=== PATIENT | female | born 1970 | race American Indian/Alaskan Native ===

== ENCOUNTER 2021-02-01 11:49 | Emergency (ER) | payer BC ==
[2021-02-01] MEDS ORDERED: LACTATED RINGERS 1,000 ML IV ONE (12:25)
--- NOTE | 2021-02-01 12:26 | Emergency Department Report ---
<ILA RAMIREZ - Last Filed: 02/01/21 15:35> ED General Adult HPI - General Chief complaint: Weakness Stated complaint: weakness PUI?: No Time Seen by Provider: 02/01/21 12:06 Source: family, EMS ( EMS documentation not available at time of chart dictation ), RN notes reviewed Mode of arrival: Stretcher Limitations: No Limitations - History of Present Illness Initial comments: The patient was evaluated in the emergency department for symptoms described in the history of present illness. He/she was evaluated in the context of the global COVID-19 pandemic, which necessitated consideration that the patient might be at risk for infection with the virus that causes COVID-19. Institutional protocols and algorithms that pertain to the evaluation of patients at risk for COVID-19 are in a state of rapid change based on information released by regulatory bodies including the CDC and federal and state organizations. These policies and algorithms were followed during the patient's care in the emergency department. Please note that these policies, procedures and recommendations changed on a rapid basis. This is a 50-year-old female. She is not known to myself previously. She moved here from [place] about a year ago. She does not have a local primary care doctor. She does not take long-term prescription medications. She has a history of multiple myeloma. She presents to the ER today with complaint of generalized weakness, malaise and fatigue. The patient endorses a dry cough. She has received her Covid vaccination. She denies loss of taste and smell. She denies physical pain. She took prescription medication for cough, which may have been , she does not know the specific name of the medication. She denies headache, neck pain, chest pain, abdominal pain, shortness of breath. She denies dysuria. She denies bladder or bowel retention or incontinence. She denies saddle anesthesia. She states that she feels generally weak. -: Gradual, hour(s) Consistency: constant Improves with: none Worsens with: movement - Related Data Home Medications Medication Instructions Recorded Confirmed Last Taken Adults Multivitamin Tablet 1 tab PO DAILY 02/01/21 02/01/21 Unknown Previous Rx's Medication Instructions Recorded Last Taken Type Potassium Chloride [K-Dur] 20 meq PO BID #30 tab 02/01/21 Unknown Rx Allergies Allergy/AdvReac Type Severity Reaction Status Date / Time No Known Allergies Allergy Unverified 02/01/21 12:52 ED Review of Systems Constitutional: malaise, weakness, other (Denies loss of taste and smell). denies: chills, fever Eyes: denies: eye discharge, vision change ENT: denies: throat pain Respiratory: denies: cough Cardiovascular: other (Lightheadedness). denies: chest pain Gastrointestinal: denies: abdominal pain, nausea, vomiting, hematemesis, melena, hematochezia Genitourinary: denies: dysuria Musculoskeletal: denies: back pain, arthralgia, myalgia Neurological: weakness. denies: headache Hematological/Lymphatic: denies: easy bleeding ED Past Medical Hx - Medications Home Medications: Home Medications Medication Instructions Recorded Confirmed Last Taken Type Adults Multivitamin Tablet 1 tab PO DAILY 02/01/21 02/01/21 Unknown History Potassium Chloride [K-Dur] 20 meq PO BID #30 tab 02/01/21 Unknown Rx ED Physical Exam - General Limitations: No Limitations General appearance: alert, in no apparent distress - Head Head exam: Present: atraumatic, normocephalic - Eye Eye exam: Present: normal appearance, PERRL, EOMI, other (Visual acuity intact to finger counting, color perception, reading at a close distance). Absent: nystagmus - ENT ENT exam: Present: normal exam, normal orophraynx, mucous membranes moist, normal external ear exam - Neck Neck exam: Present: normal inspection, full ROM. Absent: tenderness, meningismus - Respiratory Respiratory exam: Present: normal lung sounds bilaterally. Absent: respiratory distress, wheezes, rales, rhonchi, stridor, decreased breath sounds - Cardiovascular Cardiovascular Exam: Present: regular rate, normal rhythm, normal heart sounds. Absent: bradycardia, tachycardia, irregular rhythm, systolic murmur, diastolic murmur, rubs, gallop - GI/Abdominal GI/Abdominal exam: Present: soft. Absent: distended, tenderness, guarding, rebound, rigid, pulsatile mass - Extremities Exam Extremities exam: Present: normal inspection, full ROM, other (2+ pulses noted in the bilateral upper and lower extremities. There is no palpable cord. negative Homans sign. Muscular compartments are soft. The pelvis is stable.). Absent: pedal edema, calf tenderness - Back Exam Back exam: Present: normal inspection, full ROM. Absent: tenderness, CVA tenderness (R), CVA tenderness (L), paraspinal tenderness, vertebral tenderness - Neurological Exam Neurological exam: Present: alert (Patient able to perform kjvw-ak-dfzv, but it is clumsy. Xhgvlm-iw-ysro clumsy. There is no pronator drift.), oriented X3, normal gait, reflexes normal (Downgoing plantar reflexes bilaterally), other (No facial droop. Tongue midline. Extraocular movements intact bilaterally. Facial sensation intact to light touch in V1, V2, V3 distribution bilaterally. 5 and a 5 strength in 4 extremities. Sensation intact to light touch in 4 extremities.). Absent: motor sensory deficit - Psychiatric Psychiatric exam: Present: normal affect, normal mood - Skin Skin exam: Present: warm, dry, intact, normal color. Absent: rash ED Course - Reevaluation(s) Reevaluation #1: 02/01/21 13:27 Differential diagnosis, including but not limited to: Anemia, pneumonia, urinary tract infection, thyroid derangement, electrolyte derangement, deconditioning, multiple myeloma Assessment and plan: 50-year-old female, who is clinically sober, with a GCS of 15, walks with a steady gait, able to squat down and get up against body weight, able to lift of 1 leg individually while standing, against gravity without falling, with a complaint of generalized weakness, and cough, without focal motor neurologic deficit, reflexes intact, strength and sensation intact, who does have some difficulty with quzl-rh-keuy and past-pointing, but otherwise no acute neurologic findings. Check appropriate laboratory studies, urinalysis, EKG, x-ray of the chest. Have requested neurology consultation for recommendations regarding potential multiple myeloma. Reassess after initial data points. 02/01/21 14:19 Patient reports that her symptoms are improved at this time. There is no dysmetria at this time. The patient states that she feels "better than 95% better." Neurology recommendations are reviewed and appreciated. CT head, CT angiogram head and neck pending at this time. 02/01/21 15:29 We are not able to obtain 20-gauge IV access, as patient has very small veins. I personally evaluated this patient's upper extremities, and even using physical exam and the vein finder, was not able to identify an adequate vein to cannulate for 20-gauge IV, to perform CT angiogram head and neck. Therefore, we will order and obtain MR brain, MRA head and neck without contrast. Have read discussed with neurology, Dr. Wright, who advises that this plan of care is reasonable. Patient is updated on plan of care. Care will be transferred to the oncoming ER physician, Dr. Sal Lock, to follow-up on MRI brain, MRA, and arrange final disposition. If no acute findings noted, and patient not experiencing neurologic symptoms at this time, would consider discharge with outpatient follow-up acceptable. ED Medical Decision Making - Lab Data Result diagrams: 02/01/21 12:36 02/01/21 12:36 Vital Signs 02/01/21 12:33 Temperature 97.9 F Pulse Rate 73 Respiratory 13 Rate Blood Pressure 133/83 O2 Sat by Pulse 100 Oximetry Lab Results 02/01/21 Range/Units 12:36 WBC 8.5 (4.5-11.0) K/mm3 RBC 4.61 (3.65-5.03) M/mm3 Hgb 13.1 (10.1-14.3) gm/dl Hct 40.5 (30.3-42.9) % MCV 88 (79-97) fl MCH 29 (28-32) pg MCHC 33 (30-34) % RDW 13.7 (13.2-15.2) % Plt Count 246 (140-440) K/mm3 Lymph % (Auto) 22.8 (13.4-35.0) % Fleming % (Auto) 5.3 (0.0-7.3) % Eos % (Auto) 0.6 (0.0-4.3) % Baso % (Auto) 0.6 (0.0-1.8) % Lymph # (Auto) 1.9 (1.2-5.4) K/mm3 Fleming # (Auto) 0.4 (0.0-0.8) K/mm3 Eos # (Auto) 0.0 (0.0-0.4) K/mm3 Baso # (Auto) 0.1 (0.0-0.1) K/mm3 Seg Neutrophils % 70.7 H (40.0-70.0) % Seg Neutrophils # 6.0 (1.8-7.7) K/mm3 Lab Results 02/01/21 02/01/2102/01/21 Range/Units 12:36 12:36 12:36 WBC 8.5 (4.5-11.0) K/mm3 RBC 4.61 (3.65-5.03) M/mm3 Hgb 13.1 (10.1-14.3) gm/dl Hct 40.5 (30.3-42.9) % MCV 88 (79-97) fl MCH 29 (28-32) pg MCHC 33 (30-34) % RDW 13.7 (13.2-15.2) % Plt Count 246 (140-440) K/mm3 Lymph % (Auto) 22.8 (13.4-35.0) % Fleming % (Auto) 5.3 (0.0-7.3) % Eos % (Auto) 0.6 (0.0-4.3) % Baso % (Auto) 0.6 (0.0-1.8) % Lymph # (Auto) 1.9 (1.2-5.4) K/mm3 Fleming # (Auto) 0.4 (0.0-0.8) K/mm3 Eos # (Auto) 0.0 (0.0-0.4) K/mm3 Baso # (Auto) 0.1 (0.0-0.1) K/mm3 Seg Neutrophils % 70.7 H (40.0-70.0) % Seg Neutrophils # 6.0 (1.8-7.7) K/mm3 Sodium 138 (137-145) mmol/L Potassium 3.4 L (3.6-5.0) mmol/L Chloride 98.6 (98-107) mmol/L Carbon Dioxide 32 H (22-30) mmol/L Anion Gap 11 mmol/L BUN 13 (7-17) mg/dL Creatinine 0.7 (0.6-1.2) mg/dL Estimated GFR > 60 ml/min BUN/Creatinine Ratio 19 % Glucose 77 (65-100) mg/dL Lactic Acid 1.20 (0.7-2.0) mmol/L Calcium 10.5 H (8.4-10.2) mg/dL Magnesium 2.00 (1.7-2.3) mg/dL Total Bilirubin 0.50 (0.1-1.2) mg/dL AST 22 (5-40) units/L ALT 19 (7-56) units/L Alkaline Phosphatase 71 (35-129) units/L Total Creatine Kinase 97 (30-135) units/L Troponin T (0.00-0.029) ng/mL Total Protein 7.7 (6.3-8.2) g/dL Albumin 4.4 (3.9-5) g/dL Albumin/Globulin Ratio 1.3 % TSH (0.270-4.200) mlU/mL HCG, Quant (0-4) mIU/mL Salicylates (2.8-20.0) mg/dL Acetaminophen (10.0-30.0) ug/mL Plasma/Serum Alcohol (0-0.07) % 02/01/21 02/01/21 02/01/21 Range/Units 12:36 12:36 12:36 WBC (4.5-11.0) K/mm3 RBC (3.65-5.03) M/mm3 Hgb (10.1-14.3) gm/dl Hct (30.3-42.9) % MCV (79-97) fl MCH (28-32) pg MCHC (30-34) % RDW (13.2-15.2) % Plt Count (140-440) K/mm3 Lymph % (Auto) (13.4-35.0) % Fleming % (Auto) (0.0-7.3) % Eos % (Auto) (0.0-4.3) % Baso % (Auto) (0.0-1.8) % Lymph # (Auto) (1.2-5.4) K/mm3 Fleming # (Auto) (0.0-0.8) K/mm3 Eos # (Auto) (0.0-0.4) K/mm3 Baso # (Auto) (0.0-0.1) K/mm3 Seg Neutrophils % (40.0-70.0) % Seg Neutrophils # (1.8-7.7) K/mm3 Sodium (137-145) mmol/L Potassium (3.6-5.0) mmol/L Chloride (98-107) mmol/L Carbon Dioxide (22-30) mmol/L Anion Gap mmol/L BUN (7-17) mg/dL Creatinine (0.6-1.2) mg/dL Estimated GFR ml/min BUN/Creatinine Ratio % Glucose (65-100) mg/dL Lactic Acid (0.7-2.0) mmol/L Calcium (8.4-10.2) mg/dL Magnesium (1.7-2.3) mg/dL Total Bilirubin (0.1-1.2) mg/dL AST (5-40) units/L ALT (7-56) units/L Alkaline Phosphatase (35-129) units/L Total Creatine Kinase (30-135) units/L Troponin T (0.00-0.029) ng/mL Total Protein (6.3-8.2) g/dL Albumin (3.9-5) g/dL Albumin/Globulin Ratio % TSH 1.320 (0.270-4.200) mlU/mL HCG, Quant (0-4) mIU/mL Salicylates < 0.3 L (2.8-20.0) mg/dL Acetaminophen 5.0 L (10.0-30.0) ug/mL Plasma/Serum Alcohol (0-0.07) % 02/01/21 02/01/21 02/01/21 Range/Units 12:36 12:36 12:49 WBC (4.5-11.0) K/mm3 RBC (3.65-5.03) M/mm3 Hgb (10.1-14.3) gm/dl Hct (30.3-42.9) % MCV (79-97) fl MCH (28-32) pg MCHC (30-34) % RDW (13.2-15.2) % Plt Count (140-440) K/mm3 Lymph % (Auto) (13.4-35.0) % Fleming % (Auto) (0.0-7.3) % Eos % (Auto) (0.0-4.3) % Baso % (Auto) (0.0-1.8) % Lymph # (Auto) (1.2-5.4) K/mm3 Fleming # (Auto) (0.0-0.8) K/mm3 Eos # (Auto) (0.0-0.4) K/mm3 Baso # (Auto) (0.0-0.1) K/mm3 Seg Neutrophils % (40.0-70.0) % Seg Neutrophils # (1.8-7.7) K/mm3 Sodium (137-145) mmol/L Potassium (3.6-5.0) mmol/L Chloride (98-107) mmol/L Carbon Dioxide (22-30) mmol/L Anion Gap mmol/L BUN (7-17) mg/dL Creatinine (0.6-1.2) mg/dL Estimated GFR ml/min BUN/Creatinine Ratio % Glucose (65-100) mg/dL Lactic Acid (0.7-2.0) mmol/L Calcium (8.4-10.2) mg/dL Magnesium (1.7-2.3) mg/dL Total Bilirubin (0.1-1.2) mg/dL AST (5-40) units/L ALT (7-56) units/L Alkaline Phosphatase (35-129) units/L Total Creatine Kinase (30-135) units/L Troponin T < 0.010 (0.00-0.029) ng/mL Total Protein (6.3-8.2) g/dL Albumin (3.9-5) g/dL Albumin/Globulin Ratio % TSH (0.270-4.200) mlU/mL HCG, Quant 1.52 (0-4) mIU/mL Salicylates (2.8-20.0) mg/dL Acetaminophen (10.0-30.0) ug/mL Plasma/Serum Alcohol < 0.01 (0-0.07) % - EKG Data -: EKG Interpreted by Me EKG shows normal: sinus rhythm Rate: normal - EKG Data When compared to previous EKG there are: previous EKG unavailable 02/01/21 13:26 EKG interpreted at 13: 07 Sinus rhythm, rate 64 bpm. Borderline leftward axis deviation. Left anterior fascicular block. Motion artifact. Low voltage in the lateral leads. Intervals within normal limits. This is an abnormal EKG. There is no prior for comparison. The EKG is not a STEMI. - Radiology Data Radiology results: pending, image reviewed interpreted by me: 2 view x-ray of the chest, interpreted by myself, negative for acute findings. ED Disposition Clinical Impression: Cough, Dizziness, Hypokalemia Disposition: - TO HOME OR SELFCARE Is pt being admited?: No Does the pt Need Aspirin: No Condition: Good Instructions: Hypokalemia Additional Instructions: Advance diet as tolerated. Drink plenty of fluids. Do not consume medications that are . Take potassium supplementation as directed. Follow-up with a primary care doctor within the next 5 days for repeat checkup and evaluation. Please return to the emergency room right away with new pain, worsened pain, migration of pain, projectile vomiting, change in mental status, confusion, inability to tolerate liquid feeds, new, worsened or different symptoms not present on the initial emergency room evaluation. For the patient's convenience, a number of local primary care doctors offices have been listed in this paperwork. Please have a primary care doctor contact the medical records department to ob tain copies of laboratory studies and radiology studies, to follow-up on nonemergent incidental findings. Prescriptions: Potassium Chloride [K-Dur] 20 meq PO BID #30 tab Referrals: SAUL PUGH MD [Staff Physician] - 3-5 Days [facility] [Provider Group] - 3-5 Days Forms: Work/School Release Form(ED) <BIRD LOCK - Last Filed: 02/01/21 18:10> ED Review of Systems ROS: Stated complaint: weakness Other details as noted in HPI ED Course Vital Signs 02/01/21 02/01/21 02/01/21 12:12 12:31 12:33 Temperature 97.9 F Pulse Rate 72 73 Respiratory 11 L 13 Rate Blood Pressure 121/88 133/83 O2 Sat by Pulse 99 99 100 Oximetry 02/01/21 02/01/21 02/01/21 13:01 13:31 14:01 Temperature Pulse Rate 67 79 70 Respiratory 22 18 18 Rate Blood Pressure 129/74 125/75 128/78 O2 Sat by Pulse 96 97 94 Oximetry 02/01/21 02/01/21 02/01/21 14:31 15:01 15:31 Temperature Pulse Rate 83 76 64 Respiratory 14 15 16 Rate Blood Pressure 125/76 121/77 125/76 O2 Sat by Pulse 90 100 98 Oximetry - Reevaluation(s) Reevaluation #2: 02/01/21 18:[address] Ramirez. The patient underwent MRI of the head and MRA of the head and neck. The results have returned revealing no acute abnormalities. I went and reassessed the patient at 6:08 PM, and she reports that she remains symptom-free at this time. She has a normal [id number] exam without evidence of dysmetria at this time. Per neurology recommendations, she will be discharged home with instructions to follow-up with her doctor within a few days. ED Medical Decision Making - Lab Data Result diagrams: 02/01/21 12:36 02/01/21 12:36 - Radiology Data MRI BRAIN WITHOUT CONTRAST INDICATION / CLINICAL INFORMATION: Dizziness and weakness. TECHNIQUE: Multiplanar, multisequence MR images of the brain were obtained. COMPARISON: None available. FINDINGS: BRAIN / INTRACRANIAL CONTENTS: Ventricles and cortical sulci are normal in size and configuration. There is no mass effect. No evidence of intracranial hemorrhage or extra-axial fluid collection is seen. Minimal periventricular white matter hyperintensities observed adjacent to the frontal horns of the lateral ventricles. This bilatera lly symmetrical hyperintensity can be considered a normal finding. No significant areas of abnormal brain parenchymal signal intensity are identified. There is no indication of remote cortical infarction. Diffusion weighted scans are negative. There is no indication of acute ischemic injury. The brainstem and cerebellum have an unremarkable appearance. MIDLINE STRUCTURES:No abnormalities are seen to involve the pituitary gland. Pineal region has an unremarkable appearance. CRANIOCERVICAL JUNCTION: No abnormalities are identified at the craniocervical junction. VASCULAR FLOW-VOIDS: Normal flow- voids are present within the major intracranial vessels. ORBITS: The orbits have an unremarkable appearance. SINUSES / MASTOIDS: There is no indication of inflammatory disease in the paranasal sinuses or mastoid air cells. Following the administration of intravenous contrast enhancement of normal vascular structures is demonstrated. No areas of abnormal contrast enhancement are identified. IMPRESSION: 1. Normal MRI brain without contrast.. Signer Name: Jamal Washburn MD Signed: 02/01/2021 4:49 PM Workstation Name: [id number] MRA HEAD WITHOUT CONTRAST HISTORY: Dizziness and weakness COMPARISON: none TECHNIQUE: Routine MRA of the head performed. 3-D/MIP reformats postprocessed. CONTRAST: none FINDINGS: MRA HEAD: OVERVIEW: There is no evidence of intracranial stenosis or large vessel occlusion. There is no evidence of aneurysm or other vascular malformation. Intracranial vertebral arteries: Normal and symmetrical vertebral arteries both contribute to the basilar artery origin. Basilar artery: Basilar artery has an unremarkable appearance. Posterior cerebral arteries: Normal and symmetrical appearing posterior cerebral arteries are identified. Intracranial internal carotid arteries: No significant abnormality. Anterior cerebral arteries: Bilaterally symmetrical A1 segments of the anterior cerebral arteries are demonstrated. No abnormalities are seen along the course of the A2 segments or visualized pericallosal branches. Middle cerebral arteries: Normal and symmetrical M1 segments are demonstrated bilaterally. No abnormalities are seen on evaluation of the insular or opercular branches of the middle cerebral arteries. IMPRESSION: 1. No significant abnormalities are identified on MRA head. Signer Name: Jamal Washburn MD Signed: 02/01/2021 4:42 PM Workstation Name: [id number] Critical care attestation.: If time is entered above; I have spent that time in minutes in the direct care of this critically ill patient, excluding procedure time. ED Disposition Is pt being admited?: No
[2021-02-01 13:15] LABS: Basophils # (Auto) 0.1 K/mm3 (0.0-0.1); Basophils % (Auto) 0.6 % (0.0-1.8); Eosinophils % (Auto) 0.6 % (0.0-4.3); Hematocrit 40.5 % (30.3-42.9); Hemoglobin 13.1 gm/dl (10.1-14.3); Lymphocytes # (Auto) 1.9 K/mm3 (1.2-5.4); Lymphocytes % (Auto) 22.8 % (13.4-35.0); Mean Corpuscular HGB Conc 33 % (30-34); Mean Corpuscular Volume 88 fl (79-97); Monocytes # (Auto) 0.4 K/mm3 (0.0-0.8); Monocytes % (Auto) 5.3 % (0.0-7.3); Platelet Count 246 K/mm3 (140-440); Red Blood Count 4.61 M/mm3 (3.65-5.03); Red Cell Distribution Width 13.7 % (13.2-15.2)
[2021-02-01 13:39] LABS: Alanine Aminotransferase 19 units/L (7-56); Albumin 4.4 g/dL (3.9-5); Blood Urea Nitrogen 13 mg/dL (7-17); Calcium 10.5 mg/dL (8.4-10.2); Hemolysis Index 2
[2021-02-01 13:47] LABS: BUN/Creatinine Ratio 19
[2021-02-01] MEDS ORDERED: POTASSIUM CHLORIDE ER 20 MEQ TAB PO ONE (13:58)
[2021-02-01 14:06] LABS: Bilirubin,Urine NEG (Negative); Blood,Urine NEG (Negative); Color,Urine Yellow (Yellow); Mucus,Urine FEW /HPF; Protein,Urine <15 mg/dL mg/dL (Negative); Urobilinogen,Urine < 2.0 mg/dL (<2.0); WBC,Urine < 1.0 /HPF (0.0-6.0)
--- NOTE | 2021-02-01 14:08 | Consultation ---
History of Present Illness - Reason for Consult Consult date: 02/01/21 - History of Present Illness [facility] Consult Note # Demographics Consult Type: General Neurology Patient Location: Emergency Room First Name: Mariangel Last Name: Isrrael Date of : 1970 Age: 50 Gender: Female Time of Initial Page ( Time): 02/01/2021, 13:28 Time of Return Call ( Time): 02/01/2021, 13:29 # HPI History: 50yo woman who presents with generalized weakness. She has bilateral dysmetria in arms as well as legs. She states she was dizzy and weak all over starting at around 10AM or so. She was sitting her car and ready to go to work. She has been coughing for the last couple of days. She took some cough medication for this prior to the onset of symptoms. She states she is almost back to normal, essentially at 95% of normal at this time. Associated Symptoms: no confusion no dizziness no double vision gait dyscoordination no new hoarseness of voice no swallowing problems no vision changes # H-FH-SH Past Medical History: multiple myeloma Social History: non-smoker non-drinker # Scores Time of exam and NIHSS (): 02/01/2021, 14:07 Level of Consciousness 1a: [0] = Alert; keenly responsive LOC Questions 1b: [0] = Answers both questions correctly LOC Commands 1c: [0] = Performs both tasks correctly Best Gaze 2: [0] = Normal Visual 3: [0] = No visual loss Facial Palsy 4: [0] = Normal symmetrical movements Motor Arm Left 5a: [0] = No drift Motor Arm Right 5b: [0] = No drift Motor Leg Left 6a: [0] = No drift Motor Leg Right 6b: [0] = No drift Limb Ataxia 7: [0] = Absent Sensory 8: [0] = Normal Best Language 9: [0] = No aphasia Dysarthria 10: [0] = Normal Extinction and Inattention 11: [0] = No abnormality NIHSS Total: 0 # Assessment Impression: transient diffuse ataxia # Plan Thrombolytic/Intervention: NOT IV Thrombolytic or IA Intervention Thrombolytic Exclusion (< 3 hour window): non-disabling deficit Intraarterial Exclusion: non-disabling Imaging: (urgency: STAT): CT Angiogram Head and CT Angiogram Neck Other: If CTA negative and symptoms resolved may dispo; otherwise would admit for MRI and symptom control I have discussed my recommendations with the referring provider Medications and Allergies Allergies Allergy/AdvReac Type Severity Reaction Status Date / Time No Known Allergies Allergy Unverified 02/01/21 12:52 Home Medications Medication Instructions Recorded Confirmed Last Taken Type Adults Multivitamin Tablet 1 tab PO DAILY 02/01/21 02/01/21 Unknown History Exam - Constitutional Vitals: Temp Pulse Resp BP Pulse Ox 97.9 F 79 18 125/75 97 02/01/21 12:33 02/01/21 13:31 02/01/21 13:31 02/01/21 13:31 02/01/21 13:31 Results - Labs CBC & Chem 7: 02/01/21 12:36 02/01/21 12:36 Labs: Abnormal lab results 02/01/21 02/01/21 02/01/21 Range/Units 12:36 12:36 12:36 Seg Neutrophils % 70.7 H (40.0-70.0) % Potassium 3.4 L (3.6-5.0) mmol/L Carbon Dioxide 32 H (22-30) mmol/L Calcium 10.5 H (8.4-10.2) mg/dL Salicylates < 0.3 L (2.8-20.0) mg/dL Acetaminophen (10.0-30.0) ug/mL 02/01/21 Range/Units 12:36 Seg Neutrophils % (40.0-70.0) % Potassium (3.6-5.0) mmol/L Carbon Dioxide (22-30) mmol/L Calcium (8.4-10.2) mg/dL Salicylates (2.8-20.0) mg/dL Acetaminophen 5.0 L (10.0-30.0) ug/mL
--- NOTE | 2021-02-01 14:58 | XRay Report ---
CHEST 2 VIEWS INDICATION: cough and weakness. COMPARISON: None FINDINGS: SUPPORT DEVICES: None. HEART: Within normal limits. LUNGS/PLEURA: No acute air space or interstitial disease. No pneumothorax. ADDITIONAL FINDINGS: None. IMPRESSION: 1. No acute findings. Signer Name: Chad Mina MD Signed: 02/01/2021 2:54 PM Workstation Name: [id number]
[2021-02-01 15:17] LABS: Amphetamine Screen,Urine Negative; Benzodiazepines Screen,Urine Negative; Cannabinoid Screen,Urine Negative; Cocaine Screen,Urine Negative; Methadone Screen,Urine Negative; Opiate Screen,Urine Negative
[2021-02-01] MEDS ORDERED: MIDAZOLAM 2 MG/2 ML INJ IV ONE (16:15)
[2021-02-01] MEDS ORDERED: MIDAZOLAM 5 MG/5 ML INJ MDV IV ONE (16:20)
[2021-02-01] MEDS ORDERED: MIDAZOLAM 5 MG/5 ML INJ MDV IV SCH (16:30)
--- NOTE | 2021-02-01 17:47 | Magnetic Resonance Report ---
MRA HEAD WITHOUT CONTRAST HISTORY: Dizziness and weakness COMPARISON: none TECHNIQUE: Routine MRA of the head performed. 3-D/MIP reformats postprocessed. CONTRAST: none FINDINGS: MRA HEAD: OVERVIEW: There is no evidence of intracranial stenosis or large vessel occlusion. There is no eviden ce of aneurysm or other vascular malformation. Intracranial vertebral arteries: Normal and symmetrical vertebral arteries both contribute to the bas ilar artery origin. Basilar artery: Basilar artery has an unremarkable appearance. Posterior cerebral arteries: Normal and symmetrical appearing posterior cerebral arteries are identif ied. Intracranial internal carotid arteries: No significant abnormality. Anterior cerebral arteries: Bilaterally symmetrical A1 segments of the anterior cerebral arteries are demonstrated. No abnormalities are seen along the course of the A2 segments or visualized pericallos al branches. Middle cerebral arteries: Normal and symmetrical M1 segments are demonstrated bilaterally. No abnorma lities are seen on evaluation of the insular or opercular branches of the middle cerebral arteries. IMPRESSION: 1. No significant abnormalities are identified on MRA head. Signer Name: Jamal Washburn MD Signed: 02/01/2021 5:42 PM Workstation Name: [id number]
--- NOTE | 2021-02-01 17:49 | Magnetic Resonance Report ---
MRA NECK WITHOUT CONTRAST HISTORY: Dizziness and weakness. COMPARISON: none TECHNIQUE: Routine MRA neck performed. 3-D/MIP reformats postprocessed. Percentage stenosis is dete rmined by direct quantitative measurements of distal internal carotid artery diameter compared with n ormal reference segments or by criteria similar to NASCET where applicable. CONTRAST: none FINDINGS: MRA NECK: Aortic arch: Not included on this noncontrast MRA neck. Vertebral arteries: Normal and symmetrical vertebral arteries are demonstrated. Both vertebral arteri es contribute to the basilar artery origin. Right carotid artery: There is misregistration artifact at the distal right common carotid artery and at the right carotid bulb. Right common carotid artery, the carotid bifurcation and cervical portion s of the right internal carotid arteries all have an otherwise unremarkable appearance. Left carotid artery:The left common carotid artery, left carotid bifurcation and cervical portions of the left internal carotid artery all have an unremarkable appearance. SUMMARY:The degree of stenosis, if any, is determined utilizing NASCET like criteria. In this case th ere is no indication of stenosis at the carotid bifurcations or elsewhere. IMPRESSION: 1. No significant abnormality on MRA neck. Signer Name: Jamal Washburn MD Signed: 02/01/2021 5:44 PM Workstation Name: [id number]
--- NOTE | 2021-02-01 17:53 | Magnetic Resonance Report ---
MRI BRAIN WITHOUT CONTRAST INDICATION / CLINICAL INFORMATION: Dizziness and weakness. TECHNIQUE: Multiplanar, multisequence MR images of the brain were obtained. COMPARISON: None available. FINDINGS: BRAIN / INTRACRANIAL CONTENTS: Ventricles and cortical sulci are normal in size and configuration. Th ere is no mass effect. No evidence of intracranial hemorrhage or extra-axial fluid collection is seen . Minimal periventricular white matter hyperintensities observed adjacent to the frontal horns of the lateral ventricles. This bilaterally symmetrical hyperintensity can be considered a normal finding. No significant areas of abnormal brain parenchymal signal intensity are identified. There is no indic ation of remote cortical infarction. Diffusion weighted scans are negative. There is no indication of acute ischemic injury. The brainstem and cerebellum have an unremarkable appearance. MIDLINE STRUCTURES:No abnormalities are seen to involve the pituitary gland. Pineal region has an unr emarkable appearance. CRANIOCERVICAL JUNCTION: No abnormalities are identified at the craniocervical junction. VASCULAR FLOW-VOIDS: Normal flow-voids are present within the major intracranial vessels. ORBITS: The orbits have an unremarkable appearance. SINUSES / MASTOIDS: There is no indication of inflammatory disease in the paranasal sinuses or mastoi d air cells. Following the administration of intravenous contrast enhancement of normal vascular structures is dem onstrated. No areas of abnormal contrast enhancement are identified. IMPRESSION: 1. Normal MRI brain without contrast.. Signer Name: Jamal Washburn MD Signed: 02/01/2021 5:49 PM Workstation Name: [id number]
[2021-02-01 18:40] VITALS: BP 124/74
--- NOTE | 2021-02-10 10:44 | Electrocardiograph Report ---
[facility] Test Date: 2021-02-01 Test Time: 13:07:59 Pat Name: RUPESH GORMAN Department: Room: Gender: F Admissions Evaluator: SYED : 1970 Requested By: ILA MATTSON Order Number: [id number] Reading MD: Siri Cramer Measurements Intervals Hazel Rate: 64 P: 51 AR: 190 QRS: 2 QRSD: 86 T: 8 QT: 360 QTc: 373 Interpretive Statements Sinus rhythm No previous ECG available for comparison Electronically Signed On 02-10-2021 10:44:38 EDT by Siri Cramer
== END 2021-02-01 18:35 | disposition home or self-care (01) ==
LOC: ED 11:49
DX: E87.6 Hypokalemia (principal); R42 Dizziness and giddiness; R05 Cough; Z79.899 Other long term (current) drug therapy
CPT/HCPCS: 36415; 70544; 70547; 70551; 71046; 80053; 80307; 81001; 82140; 82550; 83735; 84443; 84484; 84702; 85025; 93005; 96361; 96374; 99285; J2250; J7120; 80320; G0480